=== PATIENT | female | born 1965 | race Caucasian/White ===

== ENCOUNTER 2024-07-03 06:46 | Emergency (ER) | payer OTHER, SELFPAY ==
[2024-07-03] VITALS (14 sets, daily range): BP systolic 83–105; BP diastolic 47–80
--- NOTE | 2024-07-03 07:13 | EDRN ---
the pt was received via EMS and the pt was saturated in urine, this RN and Jose Manuel DIALLO cleaned the pt, placed a new gown, brief, and pad on the pt, the pt is resting in the lowest position, side rails up x2, call esteban within reach, HOB elevated, no s/s
of distress, will continue to monitor the pt closely
--- NOTE | 2024-07-03 07:19 | ED.GENMED ---
History of Present Illness
General
Chief Complaint: Catheter/Tube Problem
Source: patient
Exam Limitations: none
Time Seen by Provider: 07/03/24 07:01
Nursing documentation reviewed up to this point in time: agreed with
History of Present Illness
History of Present Illness:
58-year-old female with past medical history of previous traumatic brain injury stroke seizures COPD hypertension hyperlipidemia GJ tube feedings. Presenting to the emergency department today with GJ tube that was displaced this morning. Otherwise
working well until yesterday evening. Normal vital signs upon arrival. No additional concerns at this point.
Past History
Past History
ED Past Medical History: COPD, GERD, HTN, Hypercholesterolemia, Seizures and Other (traumatic brain injury, dementia, migraines)
ED Past Surgical History: Other (JG tube)
Social History
Tobacco: Non-smoker
Alcohol: None
Drug: None
Personal: Other
Living: jail
Employment: Not employed
Family History
Family History: Unable to obtain
Review of Systems
Review of Systems
Allergies reviewed?: Yes
All Other Systems: ROS reviewed and negative except as documented in HPI and ROS
Phy Exam
Physical Exam
Physical Exam:
GENERAL: Alert , in no apparent distress
EYE: pupils equal and reactive
NECK: Supple, no significant adenopathy.
ENT: o/p clr, mmm.
CARDIAC: Regular rate and rhythm .
LUNGS: Clear breath sounds bilaterally, no acute respiratory distress, no wheezes/rales/rhonchi
ABDOMEN: Left upper quadrant with external opening at site of previous GJ tube no drainage. Soft, without focal tenderness, no r/g, no cvat
SKIN: Warm and dry, skin intact.
MUSCULOSKELETAL: No edema, well perfused.
PSYCH: Normal and appropriate interaction.
Course
Orders/Labs/Results
Orders:
Orders
07/03/24 11:50
Consult Interventional Radiology [[facility] CONSULT] Urgent
Consulting Provider: Rc Roper
Was physician already notified: Yes
Reason for Consult/Procedure: GJ placement
Acknowledgement that appropriate orders are entered: Yes
Vital Signs
Initial and Last Documented VS:
Initial Vital Signs
Temp Pulse Resp BP Pulse Ox
97.9 F 88 20 83/66 98
07/03/24 06:48 07/03/24 06:48 07/03/24 06:48 07/03/24 06:48 07/03/24 06:48
Last Documented Vital Signs
Temp Pulse Resp BP Pulse Ox
98.1 F 92 16 90/47 96
07/03/24 12:48 07/03/24 14:07 07/03/24 14:07 07/03/24 14:07 07/03/24 14:07
MDM/Problems Addressed
MDM/Problems Addressed:
58-year-old female presenting to the emergency department after GJ tube dislodgment this morning. Otherwise no additional issues. IR consulted for replacement. Patient stable throughout ER stay. Patient went to [facility] for GJ replacement otherwise
stable for discharge.
*Critical Care Note
Total Time (30-74mins, 75-104mins- exclusive of procedures): Not Applicable
ED Attending Note
-
Portions of this chart may have been created with voice recognition software.� Occasional wrong word or��sound alike� substitutions may have occurred due to the inherent limitations of voice recognition software.
Discharge Plan
Departure
Patient Disposition: [facility]NF
Date of Disposition: 07/03/24
Time of Disposition: 13:10
Patient with high blood pressure during this ER visit?: No
Condition: Good
Covid-19: Not Applicable
Discharge Problem:
Encounter for gastrojejunal (GJ) tube placement
Prescriptions:
No Action
bisacodyl [OneLAX Bisacodyl] 10 MG suppository
10 mg DE DAILYPRN PRN (Reason: if MOM ineff in 24H)
acetaminophen 325 MG tablet
650 mg feeding tube Q6HPRN PRN (Reason: mild pain,temp>100)
aspirin 81 MG tablet,chewable
81 mg feeding tube DAILY
atorvastatin 40 MG tablet
40 mg feeding tube HS
pregabalin [Lyrica] 20 MG/ML solution
20 mg feeding tube BID
docusate sodium 100 MG/10 ML liquid
10 ml feeding tube BID
magnesium hydroxide [Milk of Magnesia] 400 mg/5 mL Suspension
30 ml FEEDING TUBE [id number] PRN (Reason: if no bm in 3 days )
polyethylene glycol 3350 [Miralax] 17 gram Powder In Packet
17 g feeding tube BID
Saccharomyces boulardii 250 mg Capsule
250 mg feeding tube BID
buspirone 7.5 mg Tablet
15 mg feeding tube BID
potassium chloride 20 mEq/15 mL liquid
20 meq feeding tube MOWEFR
Fleet Enema 19-7 gram/118 mL Enema
118 ml DE DAILYPRN PRN (Reason: if no bm aftr dulcolax)
therapeutic multivitamin Liquid
5 ml feeding tube DAILY
Jevity 1.5 Shailesh 0.06 gram-1.5 kcal/mL Liquid
1 ea feeding tube BID
Rx Instructions:
60ml/hr max 840ml infused 1260 calories daily
Creon 12,000-38,000
1 cap feeding tube DAILYPRN PRN (Reason: declogging g/j tube)
sertraline 50 mg tablet
50 mg feeding tube DAILY
pantoprazole [address] For Susp In Packet
40 mg feeding tube DAILY
Referrals:
Christiano Koehler I., DO [Family Provider] -
Activity Restrictions/Additional Instructions:
Angel came to the emergency department today after GJ tube displacement. This was replaced here. Return to the emergency department for any worsening, new or concerning symptoms.
Interventions
Interventions:
*Risk Screen - Suicide Last Done: 07/03/24 06:48
*General Assessment Last Done: 07/03/24 06:48
*Neglect/Abuse Screening Last Done: 07/03/24 06:48
ED- Fall Risk Assessment Last Done: 07/03/24 07:00
*ED COVID-19 Vaccine History Last Done: 07/03/24 07:00
DE-Kmehgm-Uldftyoous Assessment Last Done: 07/03/24 07:00
ED-Female Genitourinary Assessment Last Done: 07/03/24 07:00
Discharge Date and Time
Print Language: LITHUANIAN
--- NOTE | 2024-07-03 07:40 | EDRN ---
[facility] is waiting to hear from IR, the pt is resting in stretcher in the lowest position, side rails up x2, call esteban within reach, HOB elevated, no s/s of distress, LUQ GJ tube site not bleeding, sterile dressing put in place by provider,
will continue to monitor the pt closely
--- NOTE | 2024-07-03 12:06 | EDRN ---
the pts blood pressures has been soft, this RN rechecked the pts BP and is currently 101/71 (76), VS WNL, RA SP02 99%, provider [facility] notified, the pt is resting in stretcher in the lowest position, side rails up x2, call esteban within reach,
HOB elevated, will continue to monitor the pt closely
--- NOTE | 2024-07-03 12:25 | EDRN ---
the pt started crying, this RN entered the room with Gloria DIALLO and the pt was repositioned for comfort, no s/s of distress, no leaking from GJ site, will continue to monitor the pt closely
--- NOTE | 2024-07-03 12:36 | EDRN ---
the pt is being taken to IR
--- NOTE | 2024-07-03 13:25 | EDRN ---
IR called this RN for verbal report, GJ tube replaced
--- NOTE | 2024-07-03 13:35 | EDRN ---
the pt was brought back from IR, VS WNL, no s/s of distress
--- NOTE | 2024-07-03 14:05 | EDRN ---
transport is being set up for the pt, the pt is resting in stretcher in the lowest position, side rails up x2, call esteban within reach, HOB elevated, no s/s of distress, VS WNL, the pt starts to cry and when staff walks in she stops, this RN spent
some time at the pts bedside and the pt was calm, will continue to monitor the pt closely
--- NOTE | 2024-07-03 14:10 | EDRN ---
this RN called [facility] at [phone] and spoke with the receiving nurse Belen
[2024-07-03 16:46] LABS: Glucose - Point of Care 107 mg/dl (70-99)
--- NOTE | 2024-07-03 16:50 | EDRN ---
this RN noticed the pt screaming, this RN entered the pts room and the pt stopped and calmed down, this RN noticed that the pts brief was wet with urine, this RN and Suzanna RN cleaned the pt up, and changed the pts brief, gown, and pad,and
repositioned the pt in bed, the pts VS WNL, will continue to monitor the pt closely and wait for transport
== END 2024-07-03 17:04 ==
LOC: EMR 06:46
PROVIDERS: CONSULT PHYSICIAN Radiology Diagnostic Radiology; EMERGENCY PHYSICIAN Emergency Medicine; FAMILY PHYSICIAN Internal Medicine
DX: Z43.1 Encounter for attention to gastrostomy (principal); Z87.820 Personal history of traumatic brain injury; I10 Essential (primary) hypertension; E78.00 Pure hypercholesterolemia, unspecified
CPT/HCPCS: 99283; 49446; 82962; C1729; C1769

== ENCOUNTER 2024-11-28 10:58 | Emergency (ER) | payer OTHER, MEDICARE, SELFPAY ==
[2024-11-28 11:05] VITALS: BP 153/100
--- NOTE | 2024-11-28 11:31 | ED.GENMED ---
History of Present Illness
General
Chief Complaint: Catheter/Tube Problem
Time Seen by Provider: 11/28/24 11:17
History of Present Illness
History of Present Illness:
Patient presents to the emergency department with dislodgment of her GJ tube. There are no other acute issues per documentation.
Past History
Past History
ED Past Medical History: COPD, GERD, HTN, Hypercholesterolemia, Seizures and Other (traumatic brain injury, dementia, migraines)
ED Past Surgical History: Other (JG tube)
Social History
Tobacco: Non-smoker
Alcohol: None
Drug: None
Personal: Other
Living: halfway
Employment: Not employed
Family History
Family History: Unable to obtain
Phy Exam
Physical Exam
Physical Exam:
General: No acute distress
Head: NCAT
Neck, Normal in appearance, no swelling
Respiratory: No Respiratory distress
Abdomen: No distension, G-tube site is clean without erythema or purulence.
Ext: no edema
Neuro: quadriplegia, chronic
Psych: Normal affect
Skin: Normal color
Course
Orders/Labs/Results
Orders:
Orders
11/28/24 11:33
[facility] CONSULT Urgent
Consulting Provider: Catalino Page
Was physician already notified: Yes
Reason for Consult/Procedure: GJ dislodgement
Acknowledgement that appropriate orders are entered: Yes
Vital Signs
Initial and Last Documented VS:
Initial Vital Signs
Pulse Ox
93
11/28/24 11:03
Last Documented Vital Signs
Temp Pulse Resp BP Pulse Ox
99.2 F 107 18 130/96 94
11/28/24 14:23 11/28/24 14:23 11/28/24 14:23 11/28/24 14:23 11/28/24 14:23
*Critical Care Note
Total Time (30-74mins, 75-104mins- exclusive of procedures): Not Applicable
ED Attending Note
ED Attending Note
ED Attending Note:
patient with displaced GJ tube
replaced in IR
will discharge back to [facility]
-
Portions of this chart may have been created with voice recognition software.� Occasional wrong word or��sound alike� substitutions may have occurred due to the inherent limitations of voice recognition software.
Discharge Plan
Departure
Patient Disposition: Group Home/SNF
Date of Disposition: 11/28/24
Time of Disposition: 15:09
Discharge Problem:
Gastrojejunostomy tube dislodgement
Prescriptions:
No Action
bisacodyl [OneLAX Bisacodyl] 10 MG suppository
10 mg [place] DAILYPRN PRN (Reason: if MOM ineff in 24H)
acetaminophen 325 MG tablet
650 mg feeding tube Q6HPRN PRN (Reason: mild pain,temp>100)
aspirin 81 MG tablet,chewable
81 mg feeding tube DAILY
atorvastatin 40 MG tablet
40 mg feeding tube HS
pregabalin [Lyrica] 20 MG/ML solution
20 mg feeding tube BID
docusate sodium 100 MG/10 ML liquid
10 ml feeding tube BID
magnesium hydroxide [Milk of Magnesia] 400 mg/5 mL Suspension
30 ml FEEDING TUBE [id number] PRN (Reason: if no bm in 3 days )
polyethylene glycol 3350 [Miralax] 17 gram Powder In Packet
17 g feeding tube BID
Saccharomyces boulardii 250 mg Capsule
250 mg feeding tube BID
buspirone 7.5 mg Tablet
15 mg feeding tube TID
potassium chloride 20 mEq/15 mL liquid
20 meq feeding tube MOWEFR
Fleet Enema 19-7 gram/118 mL Enema
118 ml [place] DAILYPRN PRN (Reason: if no bm aftr dulcolax)
therapeutic multivitamin Liquid
5 ml feeding tube DAILY
sertraline 50 mg tablet
75 mg feeding tube DAILY
pantoprazole [address] For Susp In Packet
40 mg feeding tube DAILY
Creon 12,000-38,000 -60,000 unit Capsule,Delayed Release(Dr/Ec)
1 cap PO DAILYPRN PRN (Reason: DECLOGGING G/J TUBE)
Referrals:
Christiano Koehler I., DO [Family Provider] -
Interventions
Interventions:
*Risk Screen - Suicide Last Done: 11/28/24 11:09
*General Assessment Last Done: 11/28/24 11:08
*Neglect/Abuse Screening Last Done: 11/28/24 11:09
*ED COVID-19 Vaccine History Last Done: 11/28/24 11:08
DH-Szvenv-Nqcnlfigoy Assessment Last Done: 11/28/24 11:09
ED-Female Genitourinary Assessment Last Done: 11/28/24 11:10
Discharge Date and Time
Print Language: NIGERIAN
[2024-11-28 12:00] VITALS: BP 125/89
[2024-11-28 13:00] VITALS: BP 144/107
[2024-11-28 14:23] VITALS: BP 130/96; BP_SYST 107
== END 2024-11-28 17:48 ==
LOC: EMR 10:58
PROVIDERS: EMERGENCY PHYSICIAN Emergency Medicine; FAMILY PHYSICIAN Internal Medicine
DX: Z43.1 Encounter for attention to gastrostomy (principal)
CPT/HCPCS: 99282; 49452; C1769

== ENCOUNTER 2025-04-13 09:58 | Emergency (ER) | payer OTHER, MEDICARE, SELFPAY ==
[2025-04-13 10:04] VITALS: BP 164/119
--- NOTE | 2025-04-13 10:44 | ED.GENMED ---
History of Present Illness
General
Chief Complaint: Catheter/Tube Problem
Time Seen by Provider: 04/13/25 10:17
History of Present Illness
History of Present Illness:
59-year-old female with history of developmental delay and dementia presents to the emergency department due to a possibly leaking GJ tube site. According to her nursing facility staff feedings and any saline installation with medications resulted
in leaking around the insertion site. Patient can offer no complaints otherwise at this time
Past History
Past History
ED Past Medical History: COPD, GERD, HTN, Hypercholesterolemia, Seizures and Other (traumatic brain injury, dementia, migraines)
ED Past Surgical History: Other (JG tube)
Social History
Tobacco: Non-smoker
Alcohol: None
Drug: None
Personal: Other
Living: detention
Employment: Not employed
Family History
Family History: Unable to obtain
Review of Systems
Review of Systems
Allergies reviewed?: Yes
All Other Systems: ROS reviewed and negative except as documented in HPI and ROS
Phy Exam
Physical Exam
Physical Exam:
GEN: Well appearing, NAD, WDWN
HEENT: Oral mucosa moist, no scleral icterus
Cardiac: Regular rate
Lung: No respiratory distress, no tachypnea
Abdomen: GJ tube in place, 50 cc saline infusion into the gastric tube resulted in no visible extravasation of saline
MSK: No gross deformity or injuries
Skin: Good color, no pallor or jaundice, no rashes
Neuro: Alert, nonverbal
Psych: Calm, cooperative
Course
Orders/Labs/Results
Orders:
Orders
04/13/25 10:26
CR Cont Inj Eval Tube(by Rad) Urgent
Comment:
Reason For Exam: leaking GJ tube
Vital Signs
Initial and Last Documented VS:
Initial Vital Signs
Pulse Resp BP Pulse Ox
62 16 164/119 98
04/13/25 10:04 04/13/25 10:04 04/13/25 10:04 04/13/25 10:04
Last Documented Vital Signs
Pulse Resp BP Pulse Ox
62 16 164/119 98
04/13/25 10:04 04/13/25 10:04 04/13/25 10:04 04/13/25 10:45
MDM/Problems Addressed
MDM/Problems Addressed:
Contrast enhanced imaging shows no evidence of extravasation through the tube, discharged back to her facility in stable condition
*Pulse Oximetry
SaO2: 98
Oxygen Mode of Delivery: Room air
Patient hypoxic: no
*Critical Care Note
Total Time (30-74mins, 75-104mins- exclusive of procedures): Not Applicable
ED Attending Note
-
Portions of this chart may have been created with voice recognition software.� Occasional wrong word or��sound alike� substitutions may have occurred due to the inherent limitations of voice recognition software.
Discharge Plan
Departure
Patient Disposition: Home (Routine Discharge)
Date of Disposition: 04/13/25
Time of Disposition: 11:18
Patient with high blood pressure during this ER visit?: No
Discharge Problem:
Encounter for imaging study to confirm gastrojejunal (GJ) tube placement
Prescriptions:
No Action
bisacodyl [OneLAX Bisacodyl] 10 MG suppository
10 mg [place] DAILYPRN PRN (Reason: if MOM ineff in 24H)
acetaminophen 325 MG tablet
650 mg feeding tube Q6HPRN PRN (Reason: mild pain,temp>100)
aspirin 81 MG tablet,chewable
81 mg feeding tube DAILY
atorvastatin 40 MG tablet
40 mg feeding tube HS
pregabalin [Lyrica] 20 MG/ML solution
20 mg feeding tube BID
docusate sodium 100 MG/10 ML liquid
10 ml feeding tube BID
magnesium hydroxide [Milk of Magnesia] 400 mg/5 mL Suspension
30 ml FEEDING TUBE [id number] PRN (Reason: if no bm in 3 days )
polyethylene glycol 3350 [Miralax] 17 gram Powder In Packet
17 g feeding tube BID
Saccharomyces boulardii 250 mg Capsule
250 mg feeding tube BID
buspirone 7.5 mg Tablet
15 mg feeding tube TID
potassium chloride 20 mEq/15 mL liquid
20 meq feeding tube MOWEFR
Fleet Enema 19-7 gram/118 mL Enema
118 ml [place] DAILYPRN PRN (Reason: if no bm aftr dulcolax)
therapeutic multivitamin Liquid
5 ml feeding tube DAILY
sertraline 50 mg tablet
75 mg feeding tube DAILY
pantoprazole [address] For Susp In Packet
40 mg feeding tube DAILY
Creon 12,000-38,000 -60,000 unit Capsule,Delayed Release(Dr/Ec)
1 cap PO DAILYPRN PRN (Reason: DECLOGGING G/J TUBE)
Referrals:
Christiano Koehler I., DO [Family Provider, Internal Medicine]
Activity Restrictions/Additional Instructions:
Correct placement of the tube was confirmed on x ray with contrast instillation showing no leak of contrast
Interventions
Interventions:
*Risk Screen - Suicide Last Done: 04/13/25 10:07
*General Assessment Last Done: 04/13/25 10:07
*Neglect/Abuse Screening Last Done: 04/13/25 10:07
*ED- Fall Risk Assessment Last Done: 04/13/25 10:08
*Nursing Disposition Last Done: 04/13/25 12:39
IP-Hzuppe-Skfiyqlxii Assessment Last Done: 04/13/25 10:08
Discharge Date and Time
Discharge Date/Time: 04/13/25 12:40
Print Language: POLISH
== END 2025-04-13 12:40 | disposition home or self-care (01) ==
LOC: EMR 09:58
PROVIDERS: EMERGENCY PHYSICIAN Emergency Medicine; FAMILY PHYSICIAN Internal Medicine
DX: Z43.1 Encounter for attention to gastrostomy (principal); F03.90 Unspecified dementia, unspecified severity, without behavioral disturbance, psychotic disturbance, mood disturbance, and anxiety; I10 Essential (primary) hypertension; J44.9 Chronic obstructive pulmonary disease, unspecified; E78.00 Pure hypercholesterolemia, unspecified; K21.9 Gastro-esophageal reflux disease without esophagitis; R56.9 Unspecified convulsions; G43.909 Migraine, unspecified, not intractable, without status migrainosus; Z87.820 Personal history of traumatic brain injury; Z79.82 Long term (current) use of aspirin; Z88.0 Allergy status to penicillin
CPT/HCPCS: 99283; 49465

== ENCOUNTER 2025-04-29 22:00 | Emergency (ER) | payer OTHER, MEDICARE, SELFPAY ==
[2025-04-29 22:06] VITALS: BP 125/65
[2025-04-30] VITALS (8 sets, daily range): BP systolic 73–144; BP diastolic 40–101
--- NOTE | 2025-04-30 00:52 | ED.GENMED ---
History of Present Illness
General
Chief Complaint: Catheter/Tube Problem
Source: records, previous radiology exam and previous hospital records
Exam Limitations: non verbal-adult and developmental stage
Time Seen by Provider: 04/30/25 00:33
Nursing documentation reviewed up to this point in time: agreed with
History of Present Illness
History of Present Illness:
59-year-old female from a [facility] sent here due dislodged feeding tube, looks to be GJ tube placed by IR
Patient is unable to provide any meaningful history, the stoma is patent I did place a similarly sized G-tube to keep the stoma open provide nutrition
Past History
Past History
ED Past Medical History: COPD, GERD, HTN, Hypercholesterolemia, Seizures and Other (traumatic brain injury, dementia, migraines)
ED Past Surgical History: Other (JG tube)
Social History
Tobacco: Non-smoker
Alcohol: None
Drug: None
Personal: Other
Living: [facility]
Employment: Not employed
Family History
Family History: Unable to obtain
Review of Systems
Review of Systems
All Other Systems: Not applicable
Phy Exam
Physical Exam
Physical Exam:
Physical Exam
General: Special-needs female
Neck: No jaundice
Heart: Rate
Lungs: no acute respiratory distress. clear bilaterally
Abdomen: Patent stoma left upper abdomen
Neuro: Nonverbal
Skin: no rash
Psychiatric: Unable to assess
Extremities: no edema.
Course
Orders/Labs/Results
Orders:
Orders
04/30/25 00:52
Tube Check [CR Cont Inj Eval Tube(by Rad)] Urgent
Comment:
Reason For Exam: tube out and in
Vital Signs
Initial and Last Documented VS:
Initial Vital Signs
Temp Pulse Resp BP Pulse Ox
98.2 F 68 26 125/65 92
04/29/25 22:06 04/29/25 22:06 04/29/25 22:06 04/29/25 22:06 04/29/25 22:06
Last Documented Vital Signs
Temp Pulse Resp BP Pulse Ox
98.2 F 68 26 125/65 92
04/29/25 22:06 04/29/25 22:06 04/29/25 22:06 04/29/25 22:06 04/30/25 00:52
Procedures
Other
Indication for procedure:: Dislodged feeding
Procedure completed by: Matt
Consent form signed: No
If no, reason: No parent/guardian avail.
Additional Procedure:
18-gauge G-tube placed into stoma 20 cc of saline placed into the balloon x-ray ordered
MDM/Problems Addressed
Differential Diagnosis Includes:
Dislodged GJ tube
MDM/Problems Addressed:
Dislodged GJ
Chronic conditions affecting care: Neurological disorder
Acute Exacerbation and/or Progression of Chronic Illness: Neurological disorder
*Pulse Oximetry
SaO2: 92
Oxygen Mode of Delivery: Room air
Patient hypoxic: no
*Critical Care Note
Total Time (30-74mins, 75-104mins- exclusive of procedures): Not Applicable
ED Attending Note
-
Portions of this chart may have been created with voice recognition software.� Occasional wrong word or��sound alike� substitutions may have occurred due to the inherent limitations of voice recognition software.
Discharge Plan
Departure
Prescriptions:
No Action
bisacodyl [OneLAX Bisacodyl] 10 MG suppository
10 mg [place] DAILYPRN PRN (Reason: if MOM ineff in 24H)
acetaminophen 325 MG tablet
650 mg feeding tube Q6HPRN PRN (Reason: mild pain,temp>100)
aspirin 81 MG tablet,chewable
81 mg feeding tube DAILY
atorvastatin 40 MG tablet
40 mg feeding tube HS
pregabalin [Lyrica] 20 MG/ML solution
20 mg feeding tube BID
docusate sodium 100 MG/10 ML liquid
10 ml feeding tube BID
magnesium hydroxide [Milk of Magnesia] 400 mg/5 mL Suspension
30 ml FEEDING TUBE [id number] PRN (Reason: if no bm in 3 days )
polyethylene glycol 3350 [Miralax] 17 gram Powder In Packet
17 g feeding tube BID
Saccharomyces boulardii 250 mg Capsule
250 mg feeding tube BID
buspirone 7.5 mg Tablet
15 mg feeding tube TID
potassium chloride 20 mEq/15 mL liquid
20 meq feeding tube MOWEFR
Fleet Enema 19-7 gram/118 mL Enema
118 ml [place] DAILYPRN PRN (Reason: if no bm aftr dulcolax)
therapeutic multivitamin Liquid
5 ml feeding tube DAILY
sertraline 50 mg tablet
75 mg feeding tube DAILY
pantoprazole [address] For Susp In Packet
40 mg feeding tube DAILY
Creon 12,000-38,000 -60,000 unit Capsule,Delayed Release(Dr/Ec)
1 cap PO DAILYPRN PRN (Reason: DECLOGGING G/J TUBE)
Referrals:
Christiano Koehler I., DO [Family Provider, Internal Medicine]
Interventions
Interventions:
*Risk Screen - Suicide Last Done: 04/29/25 22:06
*General Assessment Last Done: 04/29/25 22:06
*Neglect/Abuse Screening Last Done: 04/29/25 22:06
*ED- Fall Risk Assessment Last Done: 04/29/25 22:06
*ED COVID-19 Vaccine History Last Done: 04/29/25 22:06
NJ-Cbszpq-Wvzblebgvp Assessment Last Done: 04/29/25 22:56
ED-Female Genitourinary Assessment Last Done: 04/29/25 22:56
Discharge Date and Time
Print Language: SAO TOMEAN
== END 2025-04-30 12:26 | disposition home or self-care (01) ==
LOC: EMR 22:00
PROVIDERS: CONSULT PHYSICIAN Radiology Vascular & Interventional Radiology; EMERGENCY PHYSICIAN Emergency Medicine; FAMILY PHYSICIAN Internal Medicine
DX: K94.23 Gastrostomy malfunction (principal); F03.90 Unspecified dementia, unspecified severity, without behavioral disturbance, psychotic disturbance, mood disturbance, and anxiety; E78.00 Pure hypercholesterolemia, unspecified; I10 Essential (primary) hypertension; J44.9 Chronic obstructive pulmonary disease, unspecified; R13.10 Dysphagia, unspecified; K21.9 Gastro-esophageal reflux disease without esophagitis; R56.9 Unspecified convulsions; G43.909 Migraine, unspecified, not intractable, without status migrainosus; G62.9 Polyneuropathy, unspecified; F41.9 Anxiety disorder, unspecified; F32.A Depression, unspecified; Z87.820 Personal history of traumatic brain injury
CPT/HCPCS: 99283; 49452; 49465; C1769